=== PATIENT | male | born 1955 | race Caucasian/White ===

== ENCOUNTER 2018-01-26 02:49 | Emergency (ER) | payer OTHER ==
[~2018-01-26] VITALS: Ht 185.4 cm; Wt 95.0 kg
[~2018-01-26 02:49] MED LIST: CLON0.5T11; CLON2TAB; OXYC5TAB3; PRAZ1CAP2; QUET200T4; ROPI2TAB4; TRAZ-137
[2018-01-26 03:07] LABS: BASOPHILS # (AUTO) 0.04 x10^3/uL (0-0.1); BASOPHILS % (AUTO) 1 % (0-1); EOSINOPHILS % (AUTO) 2 % (1-7); LYMPHOCYTES % (AUTO) 38 % (22-44); MD NO; MEAN CORPUSCULAR HEMOGLOBIN 31.1 pg (27.5-34.5); MEAN CORPUSCULAR HGB CONC 34.6 g/dL (33.2-36.2); MEAN CORPUSCULAR VOLUME 89.9 fL (81-97); MEAN PLATELET VOLUME 8.5 fL (7.4-10.4); MONOCYTES % (AUTO) 8 % (2-9); NEUTROPHILS # (AUTO) 2.62 x10^3/uL (1.8-6.8); NEUTROPHILS % (AUTO) 52 % (42-75); PLATELET COUNT 241 x10^3/uL (130-400); RED BLOOD COUNT 4.93 x10^6/uL (4.38-5.82)
[2018-01-26 03:19] LABS: CHLORIDE 111 mmol/L (98-107)
[2018-01-26 03:20] LABS: ANION GAP 10 mmol/L (5-15); CREATININE 0.89 mg/dL (0.7-1.3)
[2018-01-26 03:22] LABS: ACETAMINOPHEN < 2 mcg/mL (10-30); SALICYLATE LEVEL < 1.7 mg/dL (2.8-20.0)
[2018-01-26] MEDS ORDERED: ZIPRASIDONE 20 MG INJ IM ONE ×2 (04:10→04:30)
[2018-01-26] MEDS ORDERED: ROPINIROLE 1MG TABLET PO ONE (07:00)
[2018-01-26 08:27] LABS: AMPHETAMINE SCREEN, URINE Negative (Negative); BARBITURATE SCREEN, URINE Negative (Negative); BENZODIAZEPINE SCREEN, URINE Negative (Negative); CANNABINOID SCREEN, URINE Negative (Negative); COCAINE SCREEN, URINE Negative (Negative); METHADONE SCREEN, URINE Negative (Negative); OPIATE SCREEN, URINE Negative (Negative)
[2018-01-26] MEDS ORDERED: LORazepam 0.5MG TABLET ONE (13:49)
[2018-01-26 13:56] VITALS: BP 118/68
[2018-01-26] MEDS ORDERED: LORazepam 0.5MG TABLET PO ONE (14:00)
== END 2018-01-26 14:32 | disposition home or self-care (01) ==
LOC: ED 06:57
DX: F10.220 Alcohol dependence with intoxication, uncomplicated (principal); R45.851 Suicidal ideations
CPT/HCPCS: 36415; 80048; 80307; 80329; 82040; 85025; 96372; 99284; J3486; G0480